=== PATIENT | female | born 1940 | race Caucasian/White ===

== ENCOUNTER 2020-10-06 17:12 | Emergency (ER) | payer MEDICARE, OTHER ==
[~2020-10-06] VITALS: Ht 170.2 cm; Wt 76.4 kg
[~2020-10-06 17:12] MED LIST: METH4TAB3 PO
[2020-10-06] MEDS ORDERED: iohexol 350MG/ML 100ml bottle IV ONE (17:31)
[2020-10-06 17:50] LABS: BASOPHILS # (AUTO) 0.1 X10'3 (0-0.2); BASOPHILS % (AUTO) 0.8 % (0-1); EOSINOPHILS # (AUTO) 0.1 X10'3 (0-0.9); EOSINOPHILS % (AUTO) 1.9 % (0-6); HEMATOCRIT 41.8 % (35.0-45.0); HEMOGLOBIN 14.3 g/dl (12.0-16.0); LYMPHOCYTES # (AUTO) 1.5 X10'3 (1.1-4.8); LYMPHOCYTES % (AUTO) 21.9 % (21-51); MEAN CORPUSCULAR HEMOGLOBIN 31.6 PG (27.0-31.0); MEAN CORPUSCULAR HGB CONC 34.2 g/dL (33.0-36.5); MEAN CORPUSCULAR VOLUME 92.5 FL (78-98); MEAN PLATELET VOLUME 7.2 FL (7.4-10.4); MONOCYTES # (AUTO) 0.5 X10'3 (0-0.9); MONOCYTES % (AUTO) 7.4 % (2-12); NEUTROPHILS # (AUTO) 4.6 X10'3 (1.8-7.7); PLATELET COUNT 178 X10'3 (140-440); RED BLOOD COUNT 4.52 X10'6 (4.20-5.60); RED CELL DISTRIBUTION WIDTH 13.5 % (11.5-14.5); WHITE BLOOD COUNT 6.8 X10'3 (4.5-11.0)
[2020-10-06 18:05] LABS: PARTIAL THROMBOPLASTIN TIME 24 SECONDS (22-32)
[2020-10-06 18:07] LABS: ALANINE AMINOTRANSFERASE 41 U/L (12-78); ALBUMIN 4.2 G/DL (3.4-5.0); ALBUMIN/GLOBULIN RATIO 1.3 (1.1-1.5); ALKALINE PHOSPHATASE 95 IU/L (46-116); ANION GAP 9 (8-16); ASPARTATE AMINO TRANSFERASE 29 U/L (10-37); BILIRUBIN,TOTAL 0.8 MG/DL (0.1-1.0); BLOOD UREA NITROGEN 17 MG/DL (7-18); BUN/CREATININE RATIO 20.7 (6.6-38.0); CALCIUM 9.9 MG/DL (8.5-10.1); CHLORIDE 100 MMOL/L (99-107); CREATININE 0.82 MG/DL (0.40-0.90); GLUCOSE 99 MG/DL (70-104); POTASSIUM 3.8 MMOL/L (3.5-5.1); SODIUM 142 MMOL/L (135-145); TOTAL CARBON DIOXIDE 33.3 MMOL/L (24-32); TOTAL PROTEIN 7.4 G/DL (6.4-8.2); eGFR 67 ML/MIN
--- NOTE | 2020-10-06 18:07 | NUR ---
Denies chest pain at this time.Son at bedside.Call light within reach.
[2020-10-06 18:18] LABS: MAGNESIUM 2.5 MG/DL (1.5-2.4)
[2020-10-06 21:42] VITALS: BP 126/77
== END 2020-10-06 21:44 | disposition home or self-care (01) ==
LOC: ER 17:13
DX: R07.89 Other chest pain (principal); R11.2 Nausea with vomiting, unspecified; M54.2 Cervicalgia; Z90.710 Acquired absence of both cervix and uterus; Z91.041 Radiographic dye allergy status; Z88.8 Allergy status to other drugs, medicaments and biological substances
CPT/HCPCS: 36415; 71045; 80053; 83735; 83880; 84484; 85025; 85610; 85730; 93005; 99285; Q9967

== ENCOUNTER 2022-01-07 06:51 | Day surgery (SDC) | payer MEDICARE, OTHER ==
[~2022-01-07] VITALS: Ht 170.2 cm; Wt 78.2 kg
[2022-01-07 07:02] VITALS: BP 130/76
[2022-01-07] MEDS ORDERED: PREG100C55 PO (07:07)
[2022-01-07] MEDS ORDERED: LORAZEPAM PO (07:07)
[2022-01-07] MEDS ORDERED: ROPI0.2540 PO (07:07)
[2022-01-07] MEDS ORDERED: GABAPENTIN PO (07:07)
[2022-01-07] MEDS ORDERED: MIDAZolam 1 MG/ML 5ML VIAL ONE (07:26)
[2022-01-07] MEDS ORDERED: fentaNYL/PF 50MCG/1 ML 2ML syringe ONE (07:26)
[2022-01-07] MEDS ORDERED: LIDOcaine Viscous 15ml cup ONE (07:26)
[2022-01-07] MEDS ORDERED: diphenhydrAMINE 50 mg/ml inj ONE (07:26)
[2022-01-07 09:34] VITALS: BP 123/74
[2022-01-07 09:44] VITALS: BP 114/83
[2022-01-07 09:54] VITALS: BP 126/69
[2022-01-07 10:04] VITALS: BP 114/63
== END 2022-01-07 10:08 | disposition home or self-care (01) ==
LOC: GI LAB 06:51
PROVIDERS: ATTEND Internal Medicine Gastroenterology
DX: Z12.11 Encounter for screening for malignant neoplasm of colon (principal); Z88.5 Allergy status to narcotic agent; Z88.8 Allergy status to other drugs, medicaments and biological substances; Z91.041 Radiographic dye allergy status
CPT/HCPCS: G0121; G0500; J1200; J2250; J3010; J7030; Z7512; 45378; 99152; A4620

== ENCOUNTER 2022-04-17 16:37 | Emergency (ER) | payer MEDICARE, OTHER ==
[~2022-04-17] VITALS: Ht 172.7 cm; Wt 77.3 kg
[~2022-04-17 16:37] MED LIST changes: +GABAPENTIN PO; +LORAZEPAM PO; -METH4TAB3 PO; +PREG100C55 PO; +ROPI0.2540 PO
[2022-04-17 17:30] LABS: BASOPHILS % (AUTO) 0.5 % (0-1); EOSINOPHILS # (AUTO) 0.1 X10'3 (0-0.9); EOSINOPHILS % (AUTO) 0.9 % (0-6); HEMATOCRIT 39.2 % (35.0-45.0); HEMOGLOBIN 13.9 g/dl (12.0-16.0); LYMPHOCYTES # (AUTO) 1.2 X10'3 (1.1-4.8); LYMPHOCYTES % (AUTO) 19.6 % (21-51); MEAN CORPUSCULAR HGB CONC 35.4 g/dL (33.0-36.5); MEAN CORPUSCULAR VOLUME 93.2 FL (78-98); MEAN PLATELET VOLUME 6.9 FL (7.4-10.4); MONOCYTES # (AUTO) 0.5 X10'3 (0-0.9); MONOCYTES % (AUTO) 7.4 % (2-12); NEUTROPHILS # (AUTO) 4.6 X10'3 (1.8-7.7); NEUTROPHILS % (AUTO) 71.6 % (42-75); PLATELET COUNT 252 X10'3 (140-440); RED BLOOD COUNT 4.21 X10'6 (4.20-5.60); RED CELL DISTRIBUTION WIDTH 13.9 % (11.5-14.5); WHITE BLOOD COUNT 6.4 X10'3 (4.5-11.0)
[2022-04-17 17:33] VITALS: BP 145/77
[2022-04-17 17:53] LABS: ALANINE AMINOTRANSFERASE 36 U/L (12-78); ALBUMIN 4.1 G/DL (3.4-5.0); ALBUMIN/GLOBULIN RATIO 1.5 (1.1-1.5); ALKALINE PHOSPHATASE 86 IU/L (46-116); ANION GAP 7 (8-16); ASPARTATE AMINO TRANSFERASE 29 U/L (10-37); BILIRUBIN,TOTAL 0.6 MG/DL (0.1-1.0); BLOOD UREA NITROGEN 11 MG/DL (7-18); BUN/CREATININE RATIO 14.3 (6.6-38.0); CALCIUM 9.2 MG/DL (8.5-10.1); CHLORIDE 100 MMOL/L (99-107); CREATININE 0.77 MG/DL (0.40-0.90); GLUCOSE 97 MG/DL (70-104); POTASSIUM 3.5 MMOL/L (3.5-5.1); SODIUM 140 MMOL/L (135-145); TOTAL CARBON DIOXIDE 33.4 MMOL/L (24-32); TOTAL PROTEIN 6.9 G/DL (6.4-8.2); eGFR 72 ML/MIN
[2022-04-17] MEDS ORDERED: HYDROcodone/acetaminophen 5mg/325mg tablet PO ONE (20:15)
[2022-04-17] MEDS ORDERED: HYDR-3965 PO (20:17)
--- NOTE | 2022-04-17 20:41 | NUR ---
po med given
[2022-04-18] MEDS ORDERED: PRED20TA PO (16:07)
[2022-04-18] MEDS ORDERED: CYCL-1 PO (16:07)
[2022-04-18] MEDS ORDERED: LIDO700A32 TOP (16:07)
== END 2022-04-17 20:43 | disposition home or self-care (01) ==
LOC: ER 16:38
DX: I10 Essential (primary) hypertension (principal); G89.29 Other chronic pain; M54.9 Dorsalgia, unspecified; F41.9 Anxiety disorder, unspecified; Z88.8 Allergy status to other drugs, medicaments and biological substances; Z88.5 Allergy status to narcotic agent; Z79.899 Other long term (current) drug therapy
CPT/HCPCS: 36415; 71045; 80053; 83880; 84484; 85025; 93005; 99285

== ENCOUNTER 2022-04-18 14:06 | Emergency (ER) | payer MEDICARE, OTHER ==
[~2022-04-18] VITALS: Ht 173.5 cm; Wt 78.0 kg
[~2022-04-18 14:06] MED LIST changes: +HYDR-3965 PO
[2022-04-18 14:38] VITALS: BP 152/67
[2022-04-18] MEDS ORDERED: LIDO700A32 TOP (16:07)
[2022-04-18] MEDS ORDERED: PRED20TA PO (16:07)
[2022-04-18] MEDS ORDERED: CYCL-1 PO (16:07)
[2022-04-18] MEDS ORDERED: ketorolac trometh inj. 60 MG/2 ML VIAL IM ONE (16:10)
== END 2022-04-18 16:32 | disposition home or self-care (01) ==
LOC: ER 14:09
DX: M54.50 Low back pain, unspecified (principal); G89.29 Other chronic pain; F41.9 Anxiety disorder, unspecified; Z90.710 Acquired absence of both cervix and uterus; Z60.2 Problems related to living alone; Z88.5 Allergy status to narcotic agent; Z88.8 Allergy status to other drugs, medicaments and biological substances; Z79.899 Other long term (current) drug therapy
CPT/HCPCS: 96372; 99283; J1885

== ENCOUNTER 2022-05-26 07:32 | Emergency (ER) | payer MEDICARE, OTHER ==
[~2022-05-26] VITALS: Ht 167.6 cm; Wt 77.8 kg
[~2022-05-26 07:32] MED LIST changes: +CYCL-1 PO; -HYDR-3965 PO; +LIDO700A32 TOP
[2022-05-26 09:10] LABS: CLARITY,URINE CLOUDY (Clear); COLOR,URINE YELLOW (Yellow); PROTEIN,URINE TRACE mg/dl (Neg); UA COLLECTION TYPE CLN CATCH MIDSTREAM
[2022-05-26 09:11] LABS: GLUCOSE, URINE NEGATIVE (Neg); KETONES,URINE NEGATIVE (Neg); LEUKOCYTE ESTERASE ,URINE NEGATIVE (Neg); NITRITES, URINE NEGATIVE (Neg); OCCULT BLOOD,URINE NEGATIVE (Neg); UROBILINOGEN,URINE 0.2 E.U/dL (0.2-1.0)
[2022-05-26 09:50] LABS: AMORPHOUS URATES 2+; BACTERIA,URINE 1+ /HPF (Neg); CAL OXALATE CRYSTALS FEW /HPF (NEGATIVE); MUCUS STRANDS FEW /LPF (Neg); RBC,URINE 0-2 /HPF (0-2); SQUAMOUS EPITHELIAL CELL,UR MANY /LPF (FEW); WBC,URINE 0-4 /HPF (0-4)
[2022-05-26 10:27] LABS: BASOPHILS % (AUTO) 0.5 % (0-1); EOSINOPHILS % (AUTO) 0.3 % (0-6); HEMATOCRIT 43.8 % (35.0-45.0); LYMPHOCYTES # (AUTO) 0.5 X10'3 (1.1-4.8); LYMPHOCYTES % (AUTO) 8.7 % (21-51); MEAN CORPUSCULAR HEMOGLOBIN 32.3 PG (27.0-31.0); MEAN CORPUSCULAR HGB CONC 34.2 g/dL (33.0-36.5); MEAN CORPUSCULAR VOLUME 94.3 FL (78-98); MONOCYTES # (AUTO) 0.2 X10'3 (0-0.9); MONOCYTES % (AUTO) 3.6 % (2-12); NEUTROPHILS % (AUTO) 86.9 % (42-75); PLATELET COUNT 242 X10'3 (140-440); RED BLOOD COUNT 4.64 X10'6 (4.20-5.60); RED CELL DISTRIBUTION WIDTH 13.4 % (11.5-14.5); WHITE BLOOD COUNT 5.7 X10'3 (4.5-11.0)
[2022-05-26 10:40] LABS: ALANINE AMINOTRANSFERASE 29 U/L (12-78); ALBUMIN 4.3 G/DL (3.4-5.0); ALBUMIN/GLOBULIN RATIO 1.3 (1.1-1.5); ALKALINE PHOSPHATASE 97 IU/L (46-116); ANION GAP 10 (8-16); ASPARTATE AMINO TRANSFERASE 25 U/L (10-37); BILIRUBIN,TOTAL 0.9 MG/DL (0.1-1.0); BLOOD UREA NITROGEN 10 MG/DL (7-18); BUN/CREATININE RATIO 12.3 (6.6-38.0); CALCIUM 10.7 MG/DL (8.5-10.1); CHLORIDE 102 MMOL/L (99-107); CREATININE 0.81 MG/DL (0.40-0.90); GLUCOSE 126 MG/DL (70-104); LIPASE 101 U/L (73-393); POTASSIUM 4.2 MMOL/L (3.5-5.1); SODIUM 141 MMOL/L (135-145); TOTAL CARBON DIOXIDE 29.1 MMOL/L (24-32); TOTAL PROTEIN 7.6 G/DL (6.4-8.2); eGFR 68 ML/MIN
[2022-05-26 11:21] VITALS: BP 161/78
[2022-05-26] MEDS: metoclopramide 10mg tablet PO ONE (13:09)
[2022-05-26] MEDS: LORazepam 0.5 MG tablet PO ONE (13:09)
[2022-05-26] MEDS: simethicone 125mg capsule PO ONE (13:10)
[2022-05-26] MEDS ORDERED: DICY10CA88 PO (14:14)
[2022-05-26] MEDS ORDERED: LORA-269 PO (14:16)
[2022-05-26] MEDS ORDERED: SIME180C70 PO (14:19)
== END 2022-05-26 15:03 | disposition home or self-care (01) ==
LOC: ER 07:33
DX: R11.2 Nausea with vomiting, unspecified (principal); R10.9 Unspecified abdominal pain; R14.0 Abdominal distension (gaseous); G89.29 Other chronic pain; M54.9 Dorsalgia, unspecified; F41.9 Anxiety disorder, unspecified; Z88.6 Allergy status to analgesic agent; Z88.5 Allergy status to narcotic agent; Z79.899 Other long term (current) drug therapy; Z79.1 Long term (current) use of non-steroidal anti-inflammatories (NSAID)
CPT/HCPCS: 36415; 80053; 81001; 83690; 85025; 93005; 99284

== ENCOUNTER 2022-08-06 14:09 | Outpatient (CLI) | payer MEDICARE, OTHER ==
[~2022-08-06 14:09] MED LIST changes: +LORA-269 PO; +SIME180C70 PO
== END 2022-08-06 23:59 | disposition home or self-care (01) ==
LOC: RAD 14:09
PROVIDERS: ATTEND Nurse Practitioner
DX: R13.14 Dysphagia, pharyngoesophageal phase (principal); K21.9 Gastro-esophageal reflux disease without esophagitis
CPT/HCPCS: 74230

== ENCOUNTER 2023-01-06 11:48 | Emergency (ER) | payer MEDICARE, OTHER ==
[~2023-01-06] VITALS: Ht 170.2 cm; Wt 76.4 kg
[2023-01-06 12:08] LABS: BASOPHILS % (AUTO) 0.6 % (0-1); EOSINOPHILS # (AUTO) 0.1 X10'3 (0-0.9); EOSINOPHILS % (AUTO) 1.5 % (0-6); HEMATOCRIT 40.9 % (35.0-45.0); HEMOGLOBIN 13.9 g/dl (12.0-16.0); LYMPHOCYTES # (AUTO) 0.9 X10'3 (1.1-4.8); LYMPHOCYTES % (AUTO) 14.9 % (21-51); MEAN CORPUSCULAR VOLUME 94.1 FL (78-98); MEAN PLATELET VOLUME 6.9 FL (7.4-10.4); MONOCYTES # (AUTO) 0.3 X10'3 (0-0.9); MONOCYTES % (AUTO) 5.5 % (2-12); NEUTROPHILS # (AUTO) 4.8 X10'3 (1.8-7.7); NEUTROPHILS % (AUTO) 77.5 % (42-75); PLATELET COUNT 225 X10'3 (140-440); RED BLOOD COUNT 4.34 X10'6 (4.20-5.60); RED CELL DISTRIBUTION WIDTH 13.3 % (11.5-14.5); WHITE BLOOD COUNT 6.2 X10'3 (4.5-11.0)
[2023-01-06 12:28] LABS: ALANINE AMINOTRANSFERASE 32 U/L (12-78); ALBUMIN 3.7 G/DL (3.4-5.0); ALBUMIN/GLOBULIN RATIO 1.3 (1.1-1.5); ALKALINE PHOSPHATASE 94 IU/L (46-116); ANION GAP 6 (8-16); ASPARTATE AMINO TRANSFERASE 24 U/L (10-37); BILIRUBIN,TOTAL 0.8 MG/DL (0.1-1.0); BLOOD UREA NITROGEN 15 MG/DL (7-18); BUN/CREATININE RATIO 16.7 (10.0-20.0); CALCIUM 9.2 MG/DL (8.5-10.1); CHLORIDE 102 MMOL/L (99-107); GLUCOSE 125 MG/DL (70-104); SODIUM 138 MMOL/L (135-145); TOTAL CARBON DIOXIDE 30.3 MMOL/L (24-32); TOTAL PROTEIN 6.6 G/DL (6.4-8.2); eGFR 60 ML/MIN
[2023-01-06] MEDS ORDERED: ondansetron 4mg rapidly disintigrating tab PO ONE (15:45)
[2023-01-06] MEDS ORDERED: cyanocobalamin 1,000 mcg/ml inj IM ONE (15:55)
[2023-01-06 16:19] VITALS: BP 126/73
== END 2023-01-06 16:22 | disposition home or self-care (01) ==
LOC: ER 11:49
DX: R11.0 Nausea (principal); M54.9 Dorsalgia, unspecified; F41.9 Anxiety disorder, unspecified; G89.29 Other chronic pain; Z88.5 Allergy status to narcotic agent; Z88.8 Allergy status to other drugs, medicaments and biological substances; Z79.899 Other long term (current) drug therapy
CPT/HCPCS: 36415; 80053; 83880; 84484; 85025; 93005; 96372; 99284; J3420

== ENCOUNTER 2024-04-25 17:08 | Emergency (ER) | payer MEDICARE, OTHER ==
[~2024-04-25] VITALS: Ht 167.6 cm; Wt 79.7 kg
[~2024-04-25 17:08] MED LIST changes: -PREG100C55 PO; +PREG100C56 PO; -ROPI0.2540 PO; +ROPI0.2544 PO
[2024-04-25 17:34] VITALS: BP 166/93; PULSE 97; RESP 18; TEMP 98; O2SAT 99
[2024-04-25 18:15] LABS: BASOPHILS % (AUTO) 0.8 % (0-1); EOSINOPHILS # (AUTO) 0.1 X10'3 (0-0.9); EOSINOPHILS % (AUTO) 1.9 % (0-6); HEMATOCRIT 40.3 % (35.0-45.0); HEMOGLOBIN 13.8 g/dl (12.0-16.0); LYMPHOCYTES # (AUTO) 1.1 X10'3 (1.1-4.8); MEAN CORPUSCULAR HEMOGLOBIN 32.7 PG (27.0-31.0); MEAN CORPUSCULAR HGB CONC 34.2 g/dL (33.0-36.5); MEAN CORPUSCULAR VOLUME 95.5 FL (78-98); MEAN PLATELET VOLUME 6.7 FL (7.4-10.4); MONOCYTES # (AUTO) 0.3 X10'3 (0-0.9); MONOCYTES % (AUTO) 6.1 % (2-12); NEUTROPHILS # (AUTO) 4.1 X10'3 (1.8-7.7); NEUTROPHILS % (AUTO) 72.2 % (42-75); PLATELET COUNT 228 X10'3 (140-440); RED BLOOD COUNT 4.22 X10'6 (4.20-5.60); RED CELL DISTRIBUTION WIDTH 13.5 % (11.5-14.5); WHITE BLOOD COUNT 5.7 X10'3 (4.5-11.0)
[2024-04-25 18:32] LABS: ALANINE AMINOTRANSFERASE 25 U/L (12-78); ALBUMIN 3.8 G/DL (3.4-5.0); ALBUMIN/GLOBULIN RATIO 1.3 (1.1-1.5); ALKALINE PHOSPHATASE 82 IU/L (46-116); ANION GAP 3 (8-16); ASPARTATE AMINO TRANSFERASE 21 U/L (10-37); BILIRUBIN,TOTAL 0.8 MG/DL (0.1-1.0); BLOOD UREA NITROGEN 10 MG/DL (7-18); BUN/CREATININE RATIO 13.3 (10.0-20.0); CALCIUM 8.9 MG/DL (8.5-10.1); CHLORIDE 102 MMOL/L (99-107); CREATININE 0.75 MG/DL (0.40-0.90); GLUCOSE 107 MG/DL (70-104); POTASSIUM 3.7 MMOL/L (3.5-5.1); SODIUM 137 MMOL/L (135-145); TOTAL CARBON DIOXIDE 31.9 MMOL/L (24-32); TOTAL PROTEIN 6.8 G/DL (6.4-8.2); eCRCL 52 ML/MIN; eGFR 74 ML/MIN
[2024-04-25 18:42] LABS: PRO BRAIN NATRIURETIC PEPTIDE 92 PG/ML (0-450)
== END 2024-04-25 19:45 | disposition left against medical advice (07) ==
LOC: ER 17:08
DX: R07.89 Other chest pain (principal); R11.0 Nausea; Z53.21 Procedure and treatment not carried out due to patient leaving prior to being seen by health care provider
CPT/HCPCS: 36415; 71045; 80053; 83880; 84484; 85025; 93005

== ENCOUNTER 2024-06-10 17:10 | Emergency (ER) | payer MEDICARE, OTHER ==
[~2024-06-10] VITALS: Ht 167.6 cm; Wt 79.0 kg
[~2024-06-10 17:10] MED LIST changes: +SIME180C61 PO; -SIME180C70 PO
[2024-06-10 17:18] VITALS: TEMP 97.6
[2024-06-10 17:45] LABS: BILIRUBIN,URINE NEGATIVE (Neg); CLARITY,URINE SLIGHTLY CLOUDY (Clear); COLOR,URINE YELLOW (Yellow); GLUCOSE, URINE NEGATIVE (Neg); KETONES,URINE TRACE mg/dl (Neg); LEUKOCYTE ESTERASE ,URINE SMALL (Neg); NITRITES, URINE POSITIVE (Neg); OCCULT BLOOD,URINE MODERATE (Neg); PH,URINE 5.5 (4.8-8.0); PROTEIN,URINE NEGATIVE (Neg); UROBILINOGEN,URINE 0.2 E.U/dL (0.2-1.0)
[2024-06-10 17:53] LABS: UA COLLECTION TYPE CLN CATCH MIDSTREAM
[2024-06-10 17:58] LABS: SQUAMOUS EPITHELIAL CELL,UR FEW /LPF (FEW)
[2024-06-10 17:59] LABS: BACTERIA,URINE 2+ /HPF (Neg); WBC CLUMPS,URINE FEW /HPF (NEGATIVE); WBC,URINE TNTC /HPF (0-4)
[2024-06-10 18:04] LABS: BASOPHILS % (AUTO) 0.4 % (0-1); EOSINOPHILS # (AUTO) 0.1 X10'3 (0-0.9); EOSINOPHILS % (AUTO) 1.3 % (0-6); HEMATOCRIT 40.7 % (35.0-45.0); HEMOGLOBIN 13.9 g/dl (12.0-16.0); LYMPHOCYTES # (AUTO) 1.1 X10'3 (1.1-4.8); LYMPHOCYTES % (AUTO) 12.9 % (21-51); MEAN CORPUSCULAR HEMOGLOBIN 32.7 PG (27.0-31.0); MEAN CORPUSCULAR HGB CONC 34.1 g/dL (33.0-36.5); MEAN CORPUSCULAR VOLUME 95.8 FL (78-98); MEAN PLATELET VOLUME 7.1 FL (7.4-10.4); MONOCYTES # (AUTO) 0.5 X10'3 (0-0.9); MONOCYTES % (AUTO) 5.3 % (2-12); NEUTROPHILS # (AUTO) 7.1 X10'3 (1.8-7.7); NEUTROPHILS % (AUTO) 80.1 % (42-75); PLATELET COUNT 257 X10'3 (140-440); RED BLOOD COUNT 4.25 X10'6 (4.20-5.60); RED CELL DISTRIBUTION WIDTH 13.5 % (11.5-14.5); WHITE BLOOD COUNT 8.9 X10'3 (4.5-11.0)
[2024-06-10 18:19] LABS: ALANINE AMINOTRANSFERASE 31 U/L (12-78); ALBUMIN 3.9 G/DL (3.4-5.0); ALBUMIN/GLOBULIN RATIO 1.1 (1.1-1.5); ALKALINE PHOSPHATASE 95 IU/L (46-116); ANION GAP 10 (8-16); ASPARTATE AMINO TRANSFERASE 23 U/L (10-37); BILIRUBIN,TOTAL 0.7 MG/DL (0.1-1.0); BLOOD UREA NITROGEN 17 MG/DL (7-18); BUN/CREATININE RATIO 21.8 (10.0-20.0); CALCIUM 9.4 MG/DL (8.5-10.1); CHLORIDE 100 MMOL/L (99-107); CREATININE 0.78 MG/DL (0.40-0.90); GLUCOSE 97 MG/DL (70-104); LIPASE 43 U/L (16-77); POTASSIUM 3.9 MMOL/L (3.5-5.1); SODIUM 138 MMOL/L (135-145); TOTAL CARBON DIOXIDE 28.1 MMOL/L (24-32); TOTAL PROTEIN 7.3 G/DL (6.4-8.2); eCRCL 50 ML/MIN; eGFR 70 ML/MIN
[2024-06-10] MEDS: LORazepam 1 MG tablet PO ONE (19:04)
[2024-06-10] MEDS: CefTRIAXone 1000mg IM Kit (w/lidocaine diluent) IM ONE (19:04)
[2024-06-10] MEDS: phenazopyridine 100mg tablet PO ONE (19:05)
[2024-06-10] MEDS ORDERED: CEFD300C3 PO (19:06)
[2024-06-10] MEDS ORDERED: PHEN-786 PO (19:06)
[2024-06-10] MEDS ORDERED: LORA-269 PO (19:07)
[2024-06-10 19:40] VITALS: BP 137/90; PULSE 91; RESP 16; O2SAT 97
== END 2024-06-10 19:43 | disposition home or self-care (01) ==
LOC: ER 17:11
DX: N39.0 Urinary tract infection, site not specified (principal); G62.9 Polyneuropathy, unspecified; F41.9 Anxiety disorder, unspecified; Z88.5 Allergy status to narcotic agent; Z90.710 Acquired absence of both cervix and uterus; Z85.820 Personal history of malignant melanoma of skin; Z91.041 Radiographic dye allergy status
CPT/HCPCS: 36415; 80053; 81001; 83690; 85025; 87088; 96372; 99283; J0696; 87077; 87186

== ENCOUNTER 2024-06-27 13:52 | Inpatient (IN) | payer MEDICARE, OTHER ==
[~2024-06-27] VITALS: Ht 167.6 cm; Wt 78.4 kg
[~2024-06-27 13:52] MED LIST changes: +PHEN-786 PO
[2024-06-27 16:27] LABS: BASOPHILS % (AUTO) 0.6 % (0-1); EOSINOPHILS # (AUTO) 0.1 X10'3 (0-0.9); EOSINOPHILS % (AUTO) 1.2 % (0-6); HEMOGLOBIN 14.1 g/dl (12.0-16.0); LYMPHOCYTES % (AUTO) 14.6 % (21-51); MEAN CORPUSCULAR HEMOGLOBIN 32.9 PG (27.0-31.0); MEAN CORPUSCULAR HGB CONC 34.3 g/dL (33.0-36.5); MONOCYTES # (AUTO) 0.4 X10'3 (0-0.9); MONOCYTES % (AUTO) 5.5 % (2-12); NEUTROPHILS # (AUTO) 5.3 X10'3 (1.8-7.7); NEUTROPHILS % (AUTO) 78.1 % (42-75); PLATELET COUNT 255 X10'3 (140-440); RED BLOOD COUNT 4.28 X10'6 (4.20-5.60); RED CELL DISTRIBUTION WIDTH 13.3 % (11.5-14.5); WHITE BLOOD COUNT 6.8 X10'3 (4.5-11.0)
[2024-06-27 16:40] LABS: ALANINE AMINOTRANSFERASE 27 U/L (12-78); ALBUMIN 4.1 G/DL (3.4-5.0); ALBUMIN/GLOBULIN RATIO 1.3 (1.1-1.5); ALKALINE PHOSPHATASE 81 IU/L (46-116); ANION GAP 5 (8-16); ASPARTATE AMINO TRANSFERASE 26 U/L (10-37); BILIRUBIN,TOTAL 0.8 MG/DL (0.1-1.0); BLOOD UREA NITROGEN 9 MG/DL (7-18); BUN/CREATININE RATIO 10.6 (10.0-20.0); CALCIUM 9.1 MG/DL (8.5-10.1); CHLORIDE 103 MMOL/L (99-107); CREATININE 0.85 MG/DL (0.40-0.90); GLUCOSE 100 MG/DL (70-104); POTASSIUM 4.2 MMOL/L (3.5-5.1); SODIUM 139 MMOL/L (135-145); TOTAL CARBON DIOXIDE 31.4 MMOL/L (24-32); TOTAL PROTEIN 7.3 G/DL (6.4-8.2); eCRCL 46 ML/MIN; eGFR 64 ML/MIN
[2024-06-27 16:47] LABS: PRO BRAIN NATRIURETIC PEPTIDE 69 PG/ML (0-450)
[2024-06-27 19:03] LABS: BILIRUBIN,URINE NEGATIVE (Neg); CLARITY,URINE CLEAR (Clear); COLOR,URINE YELLOW (Yellow); GLUCOSE, URINE NEGATIVE (Neg); KETONES,URINE 15 mg/dl (Neg); LEUKOCYTE ESTERASE ,URINE NEGATIVE (Neg); NITRITES, URINE NEGATIVE (Neg); OCCULT BLOOD,URINE NEGATIVE (Neg); PH,URINE 6.5 (4.8-8.0); PROTEIN,URINE NEGATIVE (Neg); UROBILINOGEN,URINE 0.2 E.U/dL (0.2-1.0)
[2024-06-27 19:09] LABS: UA COLLECTION TYPE VOIDED
[2024-06-27] MEDS: HYDROcodone/acetaminophen 10/325mg tab PO ONE (19:42)
[2024-06-27] MEDS: MEROPENEM 1GM/NACL 50ML IVPB 50 ML IV ONE (19:43)
[2024-06-27] MEDS ORDERED: HYDR-3968 PO (21:02)
[2024-06-28] MEDS ORDERED: magnesium hydroxide 30ml (MOM) UD suspension PO PRN (01:10)
[2024-06-28] MEDS ORDERED: ondansetron/PF 4mg/2ml inj IV PRN (01:10)
[2024-06-28] MEDS ORDERED: acetaminophen 325mg tablet PO PRN (01:10)
[2024-06-28] MEDS ORDERED: potassium Cl 40MEQ/1/2NS 520ml 520 ML IV PRN (01:10)
[2024-06-28] MEDS ORDERED: magnesium Cl slow-release 64mg tablet PO PRN (01:10)
[2024-06-28] MEDS ORDERED: magnesium sulf-water 2g/50mL 50 ML IV PRN (01:10)
[2024-06-28] MEDS ORDERED: magnesium sulf-water 4G/100mL 100 ML IV PRN (01:10)
[2024-06-28] MEDS ORDERED: potassium Cl 20 mEq SR tablet PO PRN ×2 (01:10)
[2024-06-28] MEDS: normal saline 1000ml 1,000 ML IV SCH (01:43)
[2024-06-28 02:55] LABS: HEMOGLOBIN A1C 5.4 % (4.5-6.2)
[2024-06-28 03:03] LABS: CHOL/HDL RATIO 2.7 (0.00-4.99); CHOLESTEROL 212 MG/DL (0-200); HDL CHOLESTEROL 79 MG/DL (35-60); LDL CHOLESTEROL 112 MG/DL (50-100); MAGNESIUM 2.4 MG/DL (1.5-2.4); POTASSIUM 3.9 MMOL/L (3.5-5.1); TRIGLYCERIDES 52 MG/DL (20-135)
[2024-06-28] MEDS: simethicone 80mg chew tab PO SCH (03:30)
[2024-06-28] MEDS ORDERED: non-formulary drug (Hydrocodone Bit/Acetaminophen (Hydrocodon-Acetaminoph 7.5-325) 1 TAB) PO SCH (08:00)
[2024-06-28] MEDS: K and/or MAG REPLACEMENT MC SCH (08:00)
[2024-06-28] MEDS: atorvastatin 20mg tablet PO SCH (08:21)
[2024-06-28] MEDS: docusate sod 100mg capsule PO SCH (08:21)
[2024-06-28] MEDS: phenazopyridine 100mg tablet PO SCH (08:22)
[2024-06-28] MEDS: HYDROcodone/acetaminophen 5mg/325mg tablet PO PRN (08:22)
[2024-06-28] MEDS: MEROPENEM 1GM/NACL 50ML IVPB 50 ML IV SCH (10:42)
[2024-06-28 19:05] VITALS: BP 152/63; PULSE 89; RESP 18; TEMP 97.2; O2SAT 97
[2024-06-28 20:00] VITALS: RESP 16; O2SAT 97
[2024-06-28 22:00] VITALS: BP 133/72; PULSE 88; RESP 16; TEMP 98.6; O2SAT 96
[2024-06-28] MEDS: ROPINIRole 0.25mg tablet PO SCH (22:05)
[2024-06-29 02:08] VITALS: O2SAT 97
[2024-06-29 04:59] LABS: BASOPHILS % (AUTO) 0.9 % (0-1); EOSINOPHILS # (AUTO) 0.1 X10'3 (0-0.9); HEMATOCRIT 37.9 % (35.0-45.0); LYMPHOCYTES # (AUTO) 1.1 X10'3 (1.1-4.8); LYMPHOCYTES % (AUTO) 22.6 % (21-51); MEAN CORPUSCULAR HEMOGLOBIN 32.9 PG (27.0-31.0); MEAN CORPUSCULAR HGB CONC 34.2 g/dL (33.0-36.5); MEAN CORPUSCULAR VOLUME 96.2 FL (78-98); MEAN PLATELET VOLUME 6.9 FL (7.4-10.4); MONOCYTES # (AUTO) 0.4 X10'3 (0-0.9); MONOCYTES % (AUTO) 8.7 % (2-12); NEUTROPHILS # (AUTO) 3.2 X10'3 (1.8-7.7); NEUTROPHILS % (AUTO) 64.8 % (42-75); PLATELET COUNT 217 X10'3 (140-440); RED BLOOD COUNT 3.94 X10'6 (4.20-5.60); WHITE BLOOD COUNT 4.9 X10'3 (4.5-11.0)
[2024-06-29 05:08] LABS: ALBUMIN 3.1 G/DL (3.4-5.0); ANION GAP 6 (8-16); BLOOD UREA NITROGEN 14 MG/DL (7-18); BUN/CREATININE RATIO 17.5 (10.0-20.0); CALCIUM 9.2 MG/DL (8.5-10.1); CHLORIDE 106 MMOL/L (99-107); GLUCOSE 97 MG/DL (70-104); MAGNESIUM 2.3 MG/DL (1.5-2.4); POTASSIUM 4.5 MMOL/L (3.5-5.1); SODIUM 141 MMOL/L (135-145); eCRCL 49 ML/MIN; eGFR 68 ML/MIN
[2024-06-29 06:00] VITALS: BP 137/67; PULSE 79; RESP 14; TEMP 97.9; O2SAT 95
[2024-06-29 08:00] VITALS: RESP 14; O2SAT 95
[2024-06-29] MEDS: LORazepam 1 MG tablet PO PRN (09:00)
[2024-06-29] MEDS: mag hydrox/Alum hydrox/simeth 30ml oral suspension PO PRN (14:53)
[2024-06-29] MEDS: HYDROcodone/acetaminophen 10/325mg tab PO PRN (17:09)
[2024-06-29 20:00] VITALS: RESP 16; O2SAT 94
[2024-06-29 22:00] VITALS: BP 148/80; PULSE 79; RESP 14; TEMP 98; O2SAT 96
[2024-06-30 04:48] LABS: EOSINOPHILS # (AUTO) 0.1 X10'3 (0-0.9); EOSINOPHILS % (AUTO) 3.5 % (0-6); HEMATOCRIT 35.4 % (35.0-45.0); HEMOGLOBIN 12.3 g/dl (12.0-16.0); LYMPHOCYTES # (AUTO) 1.3 X10'3 (1.1-4.8); LYMPHOCYTES % (AUTO) 32.1 % (21-51); MEAN CORPUSCULAR HEMOGLOBIN 32.9 PG (27.0-31.0); MEAN CORPUSCULAR HGB CONC 34.8 g/dL (33.0-36.5); MEAN CORPUSCULAR VOLUME 94.5 FL (78-98); MEAN PLATELET VOLUME 6.9 FL (7.4-10.4); MONOCYTES # (AUTO) 0.4 X10'3 (0-0.9); MONOCYTES % (AUTO) 8.9 % (2-12); NEUTROPHILS # (AUTO) 2.3 X10'3 (1.8-7.7); NEUTROPHILS % (AUTO) 54.5 % (42-75); PLATELET COUNT 197 X10'3 (140-440); RED BLOOD COUNT 3.74 X10'6 (4.20-5.60); WHITE BLOOD COUNT 4.1 X10'3 (4.5-11.0)
[2024-06-30 05:04] LABS: ANION GAP 3 (8-16); BLOOD UREA NITROGEN 11 MG/DL (7-18); BUN/CREATININE RATIO 13.9 (10.0-20.0); CALCIUM 8.8 MG/DL (8.5-10.1); CHLORIDE 108 MMOL/L (99-107); CREATININE 0.79 MG/DL (0.40-0.90); GLUCOSE 95 MG/DL (70-104); MAGNESIUM 2.2 MG/DL (1.5-2.4); SODIUM 142 MMOL/L (135-145); TOTAL CARBON DIOXIDE 31.1 MMOL/L (24-32); eCRCL 50 ML/MIN; eGFR 69 ML/MIN
[2024-06-30 06:00] VITALS: BP 141/76; PULSE 66; RESP 16; TEMP 98.5; O2SAT 97
[2024-06-30 08:00] VITALS: RESP 16; O2SAT 94
[2024-06-30 18:00] VITALS: BP 125/73; PULSE 70; RESP 16; TEMP 97.9; O2SAT 98
[2024-06-30 20:00] VITALS: RESP 14; O2SAT 93
[2024-06-30] MEDS: HYDROcodone/acetaminophen 5mg/325mg tablet PO PRN (20:36)
[2024-06-30 22:00] VITALS: BP 141/63; PULSE 77; RESP 18; TEMP 97.7; O2SAT 95
[2024-07-01 04:56] LABS: BASOPHILS # (AUTO) 0.1 X10'3 (0-0.2); BASOPHILS % (AUTO) 1.5 % (0-1); EOSINOPHILS # (AUTO) 0.1 X10'3 (0-0.9); EOSINOPHILS % (AUTO) 2.3 % (0-6); HEMATOCRIT 37.1 % (35.0-45.0); LYMPHOCYTES # (AUTO) 1.1 X10'3 (1.1-4.8); LYMPHOCYTES % (AUTO) 23.9 % (21-51); MEAN CORPUSCULAR HEMOGLOBIN 33.2 PG (27.0-31.0); MEAN CORPUSCULAR VOLUME 94.9 FL (78-98); MEAN PLATELET VOLUME 7.4 FL (7.4-10.4); MONOCYTES # (AUTO) 0.3 X10'3 (0-0.9); MONOCYTES % (AUTO) 7.4 % (2-12); NEUTROPHILS # (AUTO) 2.9 X10'3 (1.8-7.7); NEUTROPHILS % (AUTO) 64.9 % (42-75); PLATELET COUNT 212 X10'3 (140-440); RED CELL DISTRIBUTION WIDTH 12.8 % (11.5-14.5); WHITE BLOOD COUNT 4.5 X10'3 (4.5-11.0)
[2024-07-01 05:12] LABS: ALBUMIN 3.1 G/DL (3.4-5.0); ANION GAP 6 (8-16); BLOOD UREA NITROGEN 13 MG/DL (7-18); BUN/CREATININE RATIO 17.6 (10.0-20.0); CALCIUM 9.3 MG/DL (8.5-10.1); CHLORIDE 105 MMOL/L (99-107); CREATININE 0.74 MG/DL (0.40-0.90); GLUCOSE 98 MG/DL (70-104); MAGNESIUM 2.3 MG/DL (1.5-2.4); POTASSIUM 4.3 MMOL/L (3.5-5.1); SODIUM 141 MMOL/L (135-145); TOTAL CARBON DIOXIDE 30.3 MMOL/L (24-32); eCRCL 53 ML/MIN; eGFR 75 ML/MIN
[2024-07-01 06:00] VITALS: BP 150/78; PULSE 68; RESP 18; TEMP 97.6; O2SAT 97
[2024-07-01 08:00] VITALS: RESP 16; O2SAT 94
[2024-07-01] MEDS ORDERED: ATOR40TA71 PO (10:48)
== END 2024-07-01 12:09 | disposition home or self-care (01) | DRG 690 ==
LOC: ER 13:53 → ED HOLD 21:20 → OBSVTOIN 21:20 → UNDOADMOB 06-28 01:57 → ED HOLD 06-28 01:57 → SUR 3N 06-28 17:58
PROVIDERS: ADMIT Internal Medicine Critical Care Medicine; ATTEND Internal Medicine
DX: N30.00 Acute cystitis without hematuria (principal); Z16.24 Resistance to multiple antibiotics; B96.20 Unspecified Escherichia coli [E. coli] as the cause of diseases classified elsewhere; B37.32 Chronic candidiasis of vulva and vagina; E78.5 Hyperlipidemia, unspecified; G25.81 Restless legs syndrome; F41.9 Anxiety disorder, unspecified; G62.9 Polyneuropathy, unspecified; M54.9 Dorsalgia, unspecified; Z88.0 Allergy status to penicillin; Z90.710 Acquired absence of both cervix and uterus; Z91.041 Radiographic dye allergy status; Z85.820 Personal history of malignant melanoma of skin
CPT/HCPCS: 36415; 71045; 74176; 80048; 80053; 80061; 81003; 83036; 83605; 83735; 83880; 84132; 84145; 84484; 85025; 87040; 87081; 87088; 93005; 99285; G0378; J2185; J7030

== ENCOUNTER 2025-05-11 08:41 | Day surgery (SDC) | payer MEDICARE, OTHER ==
[~2025-05-11] VITALS: Ht 167.6 cm; Wt 75.8 kg
[2025-05-11] VITALS (8 sets, daily range): BP systolic 116–157; BP diastolic 65–88; PULSE 62–77; RESP 10–18; O2SAT 93–100
[~2025-05-11 08:41] MED LIST changes: -CYCL-1 PO; -GABAPENTIN PO; +HYDR-3972 PO; -LIDO700A32 TOP; -LORA-269 PO; -LORAZEPAM PO; -PHEN-786 PO; -PREG100C56 PO; -SIME180C61 PO; +ringers solution, lacted 1,000 ML IV SCH
--- NOTE | 2025-05-11 09:09 | ELECTROCARDIOGRAPH REPORT ---
[facility] Test Date: 2025-05-11 Test Time: 09:05:10 Pat Name: VINI AGUAYO Department: [facility] Patient ID: [id number] Room: Gender: F [employer]ician: : [id number] Requested By: LUZMARIA OLIVEROS Order Number: [id number] Reading MD: Dr. BILLY Cortes Measurements Intervals Eighty Eight Rate: 77 P: 55 DC: 119 QRS: 38 QRSD: 95 T: 7 QT: 379 QTc: 429 Interpretive Statements Sinus rhythm Ventricular premature complex Borderline short DC interval Electronically Signed On 05-11-2025 18:20:[address] BILLY Cortes Please click the below link to view image of tracing.
[2025-05-11] MEDS ORDERED: glucagon, human recombinant 1mg kit ONE (10:05)
== END 2025-05-11 11:29 | disposition home or self-care (01) ==
LOC: GI LAB 08:41
PROVIDERS: ATTEND Internal Medicine Gastroenterology
DX: R19.5 Other fecal abnormalities (principal); K57.30 Diverticulosis of large intestine without perforation or abscess without bleeding; G25.81 Restless legs syndrome; I49.3 Ventricular premature depolarization; I10 Essential (primary) hypertension; M81.0 Age-related osteoporosis without current pathological fracture; M19.90 Unspecified osteoarthritis, unspecified site
CPT/HCPCS: 45378; 93005; A4620; J1610; J7120; Z7512; Z7610